=== PATIENT | female | born 1990 | race Caucasian/White ===

== ENCOUNTER 2018-05-29 21:20 | Emergency (ER) | payer OTHER ==
[~2018-05-29 21:20] MED LIST: BACTROBAN2% TOP; DURICEF500 MG PO
[2018-05-29 21:25] VITALS: BP 121/80
--- NOTE | 2018-05-29 23:43 | ED SKIN/ALLERGY COMPLAINT ---
History of Present Illness General Chief Complaint: Skin Rash/ Abcess Stated Complaint: "LT SIDE NECK ABCESS" Source: patient Exam Limitations: no limitations Vital Signs & Intake/Output Vital Signs & Intake/Output Vital Signs Date Time Temp Pulse Resp B/P B/P Pulse O2 O2 Flow FiO2 Mean Ox Delivery Rate 05/295 98.1 65 18 121/80 99 Room Air Allergies Coded Allergies: NO KNOWN ALLERGIES (05/05/18) Reconcile Medications Amoxicillin 875 MG TABLET 1 TAB PO BID ABSCESS Sulfamethoxazole/Trimethoprim (Bactrim Ds Tablet) 800 MG-160 MG TABLET 1 TAB PO BID ABSCESS Triage Note: PT TO TRIAGE C/O ?ABCESS TO L SIDE OF NECK, PT REPORTS IS GETTING HARDER IN NATURE. STATES HX OF IN THE PAST D/T PIMPLE AND HAD TO GET IT DRAINED. Triage Nurses Notes Reviewed? yes Onset: Gradual Duration: week(s): Timing: recent history Severity: moderate Location: NECK : No Patient currently breastfeeds: No HPI: 27yo female presents to ED complaining of abscess to left neck x 1 week. Patient has hx of similar abscess which requried I&D previously. Patient reports small abscess/pimple to right neck which has improved however abscess on left neck has worsened. Patient has tried warm compress without relief of symptoms. Patient denies fevers, chills. (Alexandrea PARSONS,Pinky Whaley) Past History Travel History Traveled to [place] past 21 day No Medical History Any Pertinent Medical History? 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 No (Pinky Brasher) Review of Systems Review of Systems Constitutional: Reports: no symptoms. EENTM: Reports: no symptoms. Respiratory: Reports: no symptoms. Cardiovascular: Reports: no symptoms. GI: Reports: no symptoms. Genitourinary: Reports: no symptoms. Musculoskeletal: Reports: no symptoms. Skin: Reports: see HPI. Neurological/Psychological: Reports: no symptoms. Hematologic/Endocrine: Reports: no symptoms. Immunologic/Allergic: Reports: no symptoms. All Other Systems: Reviewed and Negative (Pinky Brasher) Physical Exam Physical Exam General Appearance: well developed/nourished, no apparent distress, alert, awake Head: atraumatic, normal appearance Eyes: Bilateral: normal appearance. Ears, Nose, Throat: hearing grossly normal Neck: supple, full range of motion, 1cm area of erythema, fluctuance, and tenderness to left neck Respiratory: no respiratory distress Back: normal inspection, normal range of motion Extremities: normal inspection, normal range of motion Neurologic/Psych: awake, alert, oriented x 3 Skin: see erythema as mentioned above (Pinky Brasher) Progress Differential Diagnosis: abscess/cellulitis, allergic reaction, contact dermatitis, urticaria Plan of Care: Orders Procedure Date/time Status HEAD & NECK CULTURE 05/30 0004 Active Microbiology 05/30 10 HEAD/NECK: Head/Neck Culture - RECD 05/30 10 HEAD/NECK: Gram Stain - RECD Abscess I&D performed with culture sent to lab. Patient started on abx. She will return in two days for wound check. She agrees with the plan of care. (Pinky Brasher) Departure Departure Disposition: HOME OR SELF CARE Condition: Stable Clinical Impression Primary Impression: Abscess Referrals: Criss Blair (PCP/Family) Additional Instructions: RETURN IN TWO DAYS FOR WOUND CHECK. TAKE ANTIBIOTICS PRESCRIBED. APPLY WARM COMPRESS TWICE DAILY. RETURN SOONER FOR WORSENING SYMPTOMS OR CONCERNS. Departure Forms: Customer Survey General Discharge Information Prescriptions: Current Visit Scripts Sulfamethoxazole/Trimethoprim (Bactrim Ds Tablet) 1 TAB PO BID #20 TAB Amoxicillin 1 TAB PO BID #20 TAB (Pinky Brasher) PA/FLOOR MECHANIC Co-Sign Statement Statement: ED Attending supervision documentation- [] I saw and evaluated the patient. I have also reviewed all the pertinent lab results and diagnostic results. I agree with the findings and the plan of care as documented in the PA's/FLOOR MECHANIC's documentation. [x] I have reviewed the ED Record and agree with the PA's/FLOOR MECHANIC's documentation. [] Additions or exceptions (if any) to the PAs/FLOOR MECHANIC's note and plan are summarized below: [] (Sae EAST,Sivakumar Angulo) Procedures Incision and Drainage Site: left neck Blade Size: 11 I & D Procedure: Yes: betadine prep, sterile drapes applied, sterile dressing applied. No: wick placed. Progress: Small incision made using 11 blade scalpel, purulent drainage expressed from abscess, culture sent to lab, patient declined local numbing with lidocaine, she tolerated the procedure well. (Alexandrea PARSONS,Pinky Whaley)
[2018-05-30] MEDS ORDERED: AMOXICILLIN875 M1 PO (00:03)
[2018-05-30] MEDS ORDERED: BACTRIM DS TAB1 EACH PO (00:03)
== END 2018-05-30 00:20 ==
LOC: ERH 21:20
DX: L02.11 Cutaneous abscess of neck (principal)
CPT/HCPCS: 87070; J2001

== ENCOUNTER 2018-05-31 14:42 | Emergency (ER) | payer OTHER ==
[~2018-05-31] VITALS: Ht 167.6 cm; Wt 59.0 kg
[~2018-05-31 14:42] MED LIST changes: +AMOXICILLIN875 M1 PO; +BACTRIM DS TAB1 EACH PO
[2018-05-31 14:50] VITALS: BP 119/75
--- NOTE | 2018-05-31 14:52 | ED ANIMAL BITE/WOUND CHECK ---
History of Present Illness General Chief Complaint: Suture Removal/Wound Recheck Stated Complaint: WOUND CHECK Source: patient Exam Limitations: no limitations Vital Signs & Intake/Output Vital Signs & Intake/Output Vital Signs Date Time Temp Pulse Resp B/P B/P Pulse O2 O2 Flow FiO2 Mean Ox Delivery Rate 05/31 1450 97.8 79 16 119/75 99 Room Air Allergies Coded Allergies: NO KNOWN ALLERGIES (05/05/18) Reconcile Medications Amoxicillin 875 MG TABLET 1 TAB PO BID ABSCESS Sulfamethoxazole/Trimethoprim (Bactrim Ds Tablet) 800 MG-160 MG TABLET 1 TAB PO BID ABSCESS Triage Note: PT TO THE ER FOR WOUND CHECK..PT HAD HER NECK ABSCESS DRAINED ON WEDNESDAY TO THE ER. ISSA LORENZO AT TRIAGE TO EVALUATE PT. Triage Nurses Notes Reviewed? yes Onset: Abrupt Duration: day(s): Timing: recent history Injury Environment: home HPI: 27-year-old female comes into the emergency room for wound check of left-sided neck abscess that was drained 2 days ago. Patient is currently on amoxicillin and Bactrim. She reports that it has gotten significantly smaller but there is still some swelling. Denies any fever chills vomiting. Denies any other associated symptoms. Past History Travel History Traveled to [place] past 21 day No Medical History Any Pertinent Medical History? 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 No Review of Systems Review of Systems Constitutional: Reports: no symptoms. EENTM: Reports: no symptoms. Respiratory: Reports: no symptoms. Cardiovascular: Reports: no symptoms. GI: Reports: no symptoms. Genitourinary: Reports: no symptoms. Musculoskeletal: Reports: no symptoms. Skin: Reports: see HPI. Neurological/Psychological: Reports: no symptoms. Hematologic/Endocrine: Reports: no symptoms. Immunologic/Allergic: Reports: no symptoms. All Other Systems: Reviewed and Negative Physical Exam Physical Exam General Appearance: well developed/nourished, mild distress Head: atraumatic Eyes: Bilateral: normal appearance. Ears, Nose, Throat: normal ENT inspection, hearing grossly normal Neck: small area about 1 cm of fluctuance to left-sided neck, no erythema, no drainage, Respiratory: no respiratory distress Back: normal inspection Extremities: normal range of motion Neurologic/Psych: awake, alert, oriented x 3, normal mood/affect Skin: intact, normal color, warm/dry Progress Differential Diagnosis: abscess, cellulitis, joint infection, tenosysnovitis Plan of Care: 05/31/2018 3:27:30 PM Patient reports it looks significantly better. Patient was told to continue oral antibiotics and warm compresses to the area. Patient was instructed to follow-up with general surgeon if not better by end of week for follow-up appointment. Location is over the left carotid artery. Due to the fact that there is such a small area I do not feel it is necessary to be further drained at this time. Patient reports significant improvement in symptoms. Patient can continue compresses and antibiotics. Departure Departure Disposition: HOME OR SELF CARE Condition: Stable Clinical Impression Primary Impression: Encounter for wound re-check Secondary Impressions: Abscess Referrals: Sonia PARSONS,Criss Grande (PCP/Family) Sigifredo EAST,Jean Carlos Corona Additional Instructions: Continue warm compresses. Continue taking antibiotics. Follow-up with general surgeon if not better by in the week. Please go over all results of today's visit with your primary care doctor. Contact your primary care doctor to let them know you were here in the emergency room. There may be nonspecific findings which may not be related to your visit today here in the emergency room but may require further evaluation and chronic monitoring by your primary care doctor. If you had a laceration today the chance of foreign body always remains. You should follow-up with your primary care doctor for recheck in 3-5 days for a wound check. If you had an x-ray done there is a chance that a fracture could have been missed on initial read and you should follow-up with your primary care doctor for repeat x-rays if symptoms persist. If your blood pressure was elevated here in the emergency room please have rechecked by [facility] primary care doctor within the next 48. If you were prescribed a narcotic here in the emergency room or any type of controlled substances you're not allowed to drive while taking this medication or operate any type of heavy machinery. Narcotics can make you feel lightheaded dizziness nausea and can cause constipation. You may need to vegetable picker a stool softener. Thank you for choosing [facility] emergency room. Please return to the emergency room immediately if you have any other concerns worsening of symptoms. Departure Forms: Customer Survey General Discharge Information
== END 2018-05-31 14:54 ==
LOC: ERH 14:42
DX: Z48.00 Encounter for change or removal of nonsurgical wound dressing (principal)